=== PATIENT | male | born 1990 | race Caucasian/White ===

== ENCOUNTER 2017-03-02 05:16 | Emergency (ER) | payer SELFPAY ==
[~2017-03-02] VITALS: Ht 185.4 cm; Wt 70.5 kg
[~2017-03-02 05:16] MED LIST: CARI350T PO; HYDR-3498 PO; IBUP-1542 PO
[2017-03-02 05:22] VITALS: Ht 185.4 cm; Wt 70.5 kg
[2017-03-02] MEDS ORDERED: D-ME473S18 PO (06:30)
[2017-03-02] MEDS ORDERED: PSEU120T51 PO (06:31)
--- NOTE | 2017-03-02 06:41 | ERD ---
ER Documentation Chief Complaint Date/Time DATE: 03/02/17 TIME: 06:37 Chief Complaint CHEST COGESTION X1DAY HPI This is a 26-year-old male presents to the ER stating he has a stuffy nose, and dry mouth with a mild cough that started yesterday. Patient denies any chest pain or shortness of breath. Cough is dry, worse at night. He has not had any fevers or chills. Patient is also complaining of sore throat, which is worse whenever he swallows. She denies any problems swallowing. Patient presented to the ER with an old prescription of promethazine with codeine, and was requesting that medication. ROS 12 point review of systems was done, all negative except per HPI. Medications Home Meds Active Scripts Pseudoephedrine Hcl (Sudafed 12 Hour) 120 Mg Tablet.sa, 120 MG PO BID for 3 Days Prov:LILIA SILVESTRE 03/02/17 Dextromethorphan Hb-Promethazine Hcl (Promethazine DM Syrup) 473 Ml Syrup, 10 ML PO Q6H Y for COUGH, #4 OZ Prov:LILIA SILVESTRE 03/02/17 Ibuprofen* (Motrin*) 600 Mg Tab, 600 MG PO Q6, #30 TAB Prov:SHARATH LAY PA-C 10/10/15 Carisoprodol* (Soma*) 350 Mg Tablet, 350 MG PO TID Y for MUSCLE SPASMS, #15 TAB Prov:SHARATH LAY PA-C 10/10/15 Hydrocodone Bit-Acetaminophen* ([place]*) 5-325 Mg Tab, 1 TAB PO Q6 Y for PAIN, # 10 TAB Prov:SHARATH LAY PA-C 10/10/15 Allergies Allergies: Coded Allergies: No Known Allergy (Unverified , 10/10/15) PMhx/Soc History of Surgery: No Anesthesia Reaction: No Hx Neurological Disorder: No Hx Respiratory Disorders: No Hx Cardiac Disorders: No Hx Psychiatric Problems: No Hx Miscellaneous Medical Probl: No Hx Alcohol Use: No Hx Substance Use: No Hx Tobacco Use: Yes Smoking Status: Current every day smoker Physical Exam Vitals Vital Signs Date Time Temp Pulse Resp B/P Pulse Ox O2 Delivery O2 Flow Rate FiO2 03/02/17 05:22 98.9 102 16 118/66 97 Physical Exam GENERAL: Patient smells strongly of marijuana, and appears to be intoxicated of marijuana. NECK: Cervical spine is non tender with no step off. Supple, no nuchal rigidity HEENT: Atraumatic. Pupils equal, round and reactive to light. Extraocular muscles are grossly intact. Conjunctivae pink, no discharge. Bilateral tympanic membranes are clear with no evidence of erythema, effusion or dulling of the light reflex. Tonsilar erythema with no exudates or uvular deviation. Clear rhinorrhea. RESPIRATORY: Clear to auscultation bilaterally. There are no rales, wheezes or rhonchi. HEART: Regular rate and rhythm. No murmurs, clicks, rubs or gallops. NEUROLOGIC: Alert and oriented SKIN: There is no rash. The skin is warm and dry. Procedures/MDM Differential diagnosis includes but is not limited to; Viral URI, allergic rhinitis, bronchitis, pertussis,pneumonia. This is likely viral in etiology. Clinical suspicion for pneumonia is low as patient appears well, is not hypoxic or in any respiratory distress. Additionally, patients physical examination is benign. Patient does feel comfortable prescribing promethazine with codeine , as patient already appears intoxicated. Patient will be sent home with regular promethazine and Sudafed. Plan was discussed with patient they understand and agree. Patient needs to follow up with PCP in 1-2 days or return to ER sooner if symptoms worsen. Departure Diagnosis: Primary Impression: Upper respiratory infection Condition: Stable Patient Instructions: Adult Self-Care for Colds Additional Instructions: Call your primary care doctor TOMORROW for an appointment during the next 1-2 days.See the doctor sooner or return here if your condition worsens before your appointment time. LILIA SILVESTRE Mar 02, 2017 06:40
== END 2017-03-02 07:01 | disposition home or self-care (01) ==
LOC: FTE 05:16
DX: J06.9 Acute upper respiratory infection, unspecified (principal); F17.210 Nicotine dependence, cigarettes, uncomplicated
CPT/HCPCS: 99283